=== PATIENT | male | born 1980 | race Caucasian/White ===

== ENCOUNTER 2018-05-16 21:21 | Emergency (ER) | payer SELFPAY ==
[~2018-05-16] VITALS: Ht 180.3 cm; Wt 90.7 kg
[2018-05-16 21:28] VITALS: Ht 180.3 cm; Wt 90.7 kg
[2018-05-16] MEDS ORDERED: TORADOL10 MG PO (23:51)
[2018-05-17 00:02] VITALS: BP 107/61
== END 2018-05-17 00:02 | disposition home or self-care (01) ==
LOC: D.ER 21:21
DX: M54.16 Radiculopathy, lumbar region (principal)